=== PATIENT | female | born 1990 | race Caucasian/White ===

== ENCOUNTER → 2018-07-07 11:41 | Outpatient (CLI) | payer OTHER, MEDICAID, SELFPAY ==
[2018-07-07 12:09] LABS: Add Manual Diff / Slide Review NO; Basophils Percent Auto 0.5 % (0-2); Eosinophils Percent Auto 0.9 % (2-4); Hematocrit 35.7 % (36-46); Hemoglobin 11.9 g/dL (12.0-16.0); Mean Corpuscular HGB Conc 33.2 % (30-36); Mean Corpuscular Hemoglobin 26.3 PG (26-34); Mean Corpuscular Volume 79.2 fL (80-100); Monocytes Percent Auto 5.2 % (3-14); Neutrophils Absolute Auto 9000 /uL (3000-5900); Neutrophils Percent Auto 74.4 % (50-75); Platelet Count 342 X10^3/uL (150-400); Red Blood Cell Count 4.51 X10^6/uL (4.0-5.2); Red Cell Distribution Width 14.3 % (11.6-14.8)
[2018-07-07 12:35] LABS: Appearance Urine UA SL CLOUDY; Bilirubin Urine UA NEGATIVE (NEGATIVE); Color Urine UA YELLOW; Glucose Urine UA NEGATIVE (Normal); Ketones Urine UA NEGATIVE (NEGATIVE); Leukocyte Esterase Urine UA NEGATIVE (NEGATIVE); Nitrite Urine UA POSITIVE (Negative); Occult Blood Urine UA NEGATIVE (Negative); Protein Urine UA NEGATIVE (Negative); Urobilinogen Urine UA 0.2 E.U./dL (0.2); pH Urine UA 6.5 (4.5-8.0)
[2018-07-07 12:57] LABS: Amorphous Sediment Urine 1+; Bacteria Urine Many (>30); Mucus Urine 1+ (Negative); RBC Urine None Seen (0-5/HPF); Squamous Epithelial Cell Urine 1-5 /HPF; WBC Urine 1-5/HPF (0-5/HPF)
[2018-07-07 15:40] LABS: Hepatitis B Surface Antigen NEGATIVE s/c (NEGATIVE); Rubella Antibody IgG 21.5 IU/mL (>15)
[2018-07-07 15:54] LABS: HIV 1 and 2 Antibody NEGATIVE (NEGATIVE); Hep C Virus Ab w/Reflex Quant NEGATIVE s/c (NEGATIVE)
[2018-07-09 08:52] LABS: Varicella IgG Antibody < 135.00 Index (< 135.00)
[2018-07-09 13:23] LABS: RPR Screen Nonreactive (Nonreactive)
[2018-07-10 08:53] LABS: HSV 2 IGG AB < 0.90 index (< 0.90); HSV1IGG < 0.90 index (< 0.90)
== END ==
PROVIDERS: PCP Obstetrics & Gynecology; Visit Provider Obstetrics & Gynecology
DX: Z34.81 Encounter for supervision of other normal pregnancy, first trimester (principal); Z3A.01 Less than 8 weeks gestation of pregnancy
CPT/HCPCS: 36415; 80055; 81003; 81015; 86695; 86696; 86703; 86787; 86803; 86850; 86900; 86901; 87077; 87086; 87186

== ENCOUNTER → 2018-09-25 13:38 | Outpatient (CLI) | payer OTHER, MEDICAID, SELFPAY ==
--- NOTE | 2018-09-25 13:44 | DI.US.S_ITS ---
PROCEDURE: US OB >= 14 WEEKS FETUS INDICATIONS: ANATOMY OUTSIDE/PRIOR DATING DATA: Last menstrual period (LMP): 05/03/18. LMP-based estimated date of delivery (FRANCISCO JAVIER): 02/07/19. First dating scan (date and location): 09/25/18. Estimated date of delivery (FRANCISCO JAVIER) from first dating scan: 02/05/19. TECHNIQUE: Real-time scanning was performed of the fetus, with image documentation and biometric measurements. Endovaginal scanning: No COMPARISON: [facility], , OB <= 14 WEEKS FETUS, 07/21/2018, 16:08. FINDINGS: General: A single living intrauterine gestation is present. Presentation: Transverse. Placenta: Placental position is fundal, without previa. Amniotic fluid index: 14.4 cm, normal range is 5-24 cm. heart rate: 155 beats per minute. Maternal cervical canal: 3.9 cm long. Normal lower limit is 2.5 cm. biometrics: Biparietal diameter: 20 weeks 6 days Head circumference: 21 weeks 2 days Abdominal circumference: 20 weeks 6 days Femur length: 21 weeks 4 days Estimated gestational age from initial scan: 21 weeks 0 days Composite gestational age from present scan: 1 weeks 1 day Estimated weight and percentile: 403 g; 53rd percentile Measurement variability for biometric dating: +/- 7 days from 14 weeks to 15 weeks 6 days gestation, +/- 10 days from 16 weeks to 21 weeks 6 days gestation, +/- 2 weeks from 22 weeks to 27 weeks 6 days gestation, +/- 3 weeks for 28 weeks gestation or later. weight reference: 4500 g or EFW >90/95% is considered macrosomia or large for gestational age. EFW <10% is small for gestational age. EFW 5% or less is considered intra-uterine growth restriction. Anatomic survey: Neuro: Ventricles are non-dilated at less than 10 mm. Cisterna magna is normal at 3-11 mm. Cerebellum is normal in size and morphology. Nuchal skin fold: Normal at less than 6 mm between 14-21 weeks gestational age. Face: Not well-seen. Spine: No evidence for spina bifida. Heart: 4-chambered heart is present, with normal ventricular outflow tracts. Diaphragm: Diaphragm is intact. Stomach: Left-sided stomach is present. Kidneys: No hydronephrosis. Normal is less than 5 mm in 2nd trimester, less than 7 mm in 3rd trimester. Cord: 3-vessel cord has orthotopic insertion. Bladder: Normal in size. Extremities: All 4 extremities identified. IMPRESSION: 1. Single living IUP redemonstrated and interval growth is normal. 2. face not well visualized otherwise normal anatomic survey. Followup recommended. Dictated by: [employer] [facility] Interpreted: Jean Marie Brito MD on 09/25/2018 at 15:21 Approved by: Jean Marie Brito M.D. on 09/25/2018 at 17:18
== END ==
PROVIDERS: Visit Provider Obstetrics & Gynecology
DX: Z34.82 Encounter for supervision of other normal pregnancy, second trimester (principal); Z3A.21 21 weeks gestation of pregnancy
CPT/HCPCS: 76811

== ENCOUNTER → 2018-10-21 12:54 | Outpatient (CLI) | payer OTHER, MEDICAID, SELFPAY ==
[2018-10-21 14:38] LABS: Hematocrit 33.6 % (36-46); Hemoglobin 10.9 g/dL (12.0-16.0)
[2018-10-21 14:55] LABS: GTT (PREG) 1 Hour PP 50gm Dose 133 mg/dL (76-139)
== END ==
PROVIDERS: Visit Provider Obstetrics & Gynecology
DX: Z34.82 Encounter for supervision of other normal pregnancy, second trimester (principal); Z34.02 Encounter for supervision of normal first pregnancy, second trimester; Z3A.15 15 weeks gestation of pregnancy
CPT/HCPCS: 36415; 82105; 82677; 82950; 84702; 85014; 85018; 86336

== ENCOUNTER 2018-12-16 12:13 | Outpatient (CLI) | payer OTHER, MEDICAID, SELFPAY | END 2018-12-16 13:07 | disposition home or self-care (01) | LOC: LABOR 12:55 → OB 12-17 10:47 | PROVIDERS: PCP Family Medicine; Visit Provider Obstetrics & Gynecology | DX: O76 Abnormality in fetal heart rate and rhythm complicating labor and delivery (principal); Z3A.32 32 weeks gestation of pregnancy | CPT/HCPCS: 59025; G0378; G0379 ==

== ENCOUNTER 2019-01-01 15:57 | Observation (INO) | payer OTHER, MEDICAID, SELFPAY | END 2019-01-01 19:30 | disposition home or self-care (01) | PROVIDERS: Admitting Provider Obstetrics & Gynecology; PCP Family Medicine; Visit Provider Obstetrics & Gynecology | DX: Z34.83 Encounter for supervision of other normal pregnancy, third trimester (principal); Z3A.34 34 weeks gestation of pregnancy | CPT/HCPCS: 59025; 59050; G0378; G0379 ==

== ENCOUNTER 2019-01-01 16:59 | Observation (INO) | payer OTHER, MEDICAID, SELFPAY ==
[2019-01-01] MEDS: NIFEdipine 10 MG CAPSULE PO ×2 (18:40→19:02)
== END 2019-01-01 19:30 | disposition home or self-care (01) ==
LOC: AC 17:08 → LABOR 17:37
PROVIDERS: Admitting Provider Obstetrics & Gynecology; PCP Family Medicine; Visit Provider Obstetrics & Gynecology
DX: Z34.83 Encounter for supervision of other normal pregnancy, third trimester (principal); Z3A.34 34 weeks gestation of pregnancy
CPT/HCPCS: 59025; 59050; G0378; G0379

== ENCOUNTER → 2019-01-18 14:57 | Outpatient (CLI) | payer OTHER, MEDICAID, SELFPAY ==
[2019-01-19 21:09] LABS: Strep Grp B PCR POS for Grp B Strep
== END ==
PROVIDERS: PCP Family Medicine; Visit Provider Obstetrics & Gynecology
DX: Z34.83 Encounter for supervision of other normal pregnancy, third trimester (principal); Z3A.37 37 weeks gestation of pregnancy
CPT/HCPCS: 87653

== ENCOUNTER 2019-02-01 05:45 | Inpatient (IN) | payer OTHER, MEDICAID, SELFPAY ==
[2019-02-01 06:36] VITALS: BP 129/78
[2019-02-01] MEDS: LACTATED RINGERS 1,000 ML 1000 ML IV ×2 (06:36→07:36)
--- NOTE | 2019-02-01 07:41 | PM.PREOP ---
Pre-operative Note Interval Note History & Physical reviewed/Exam performed by Physician: Yes Changes to H&P: No
[2019-02-01] MEDS: CEFAZOLIN 2 GM/100 ML FROZ.PIGGY IV (07:50)
[2019-02-01 07:54] LABS: Basophils Absolute Auto 100 /uL (0-100); Hemoglobin 10.4 g/dL (12.0-16.0); Lymphocytes Absolute Auto 2800 /uL (1100-4500)
[2019-02-01 07:59] LABS: Basophils Percent Auto 0.6 % (0-2); Eosinophils Absolute Auto 100 /uL (0-450); Eosinophils Percent Auto 0.7 % (2-4); Hematocrit 32.7 % (36-46); Lymphocytes Percent Auto 17.4 % (25-40); Mean Corpuscular HGB Conc 31.8 % (30-36); Mean Corpuscular Hemoglobin 24.6 PG (26-34); Mean Corpuscular Volume 77.3 fL (80-100); Monocytes Absolute Auto 1000 /uL (0-900); Monocytes Percent Auto 6.3 % (3-14); Neutrophils Absolute Auto 12000 /uL (1500-7000); Red Blood Cell Count 4.23 X10^6/uL (4.0-5.2); Red Cell Distribution Width 15.8 % (11.6-14.8)
[2019-02-01 08:01] LABS: Add Manual Diff / Slide Review SLIDE REVIEW
[2019-02-01 08:19] LABS: RBC Morphology Normal Morphology
--- NOTE | 2019-02-01 08:36 | SUR.OPER ---
Supine on Padded OR bed, head on pillow, safety belt at thigh, arms secured on padded arm boards at <90 degrees abduction. Bump under right buttock. Legs uncrossed with pillow under knees, gel pad to heels, tape over blanket to lower legs.
--- NOTE | 2019-02-01 08:39 | SUR.OPER ---
Viable female delivered at 0825. Cord blood and placenta sent with L&D nurse.
[2019-02-01 08:52] LABS: Platelet Count 270 X10^3/uL (150-400)
[2019-02-01 09:09] VITALS: BP 114/63; PULSE 73; RESP 12; TEMP 36.2; O2SAT 98
[2019-02-01 09:13] VITALS: BP 109/64; PULSE 68; RESP 11; O2SAT 99
--- NOTE | 2019-02-01 09:14 | SUR.PHASEI ---
IV IN RIGHT HAND SECURED, INTACT AND INFUSING WITHOUT DIFFICULTLY.
[2019-02-01 09:18] VITALS: BP 111/64; PULSE 79; RESP 16; TEMP 36.3; O2SAT 97
--- NOTE | 2019-02-01 09:19 | SUR.PHASEI ---
PT IN STABLE CONDITION, VSS. PT LAYING IN BED WITH EYES OPEN AND EATING ICE CHIPS. PT DENIES ANY PAIN/DISCOMFORT OR NAUSEA. DRSG ON ABDOMEN OBSERVED TO BE C/D/I. LUIS-PAD OBSERVED TO HAVE SMALL AMOUNT OF RED BLOOD. CATHETER SECURE AND DRAINING CLEAR YFN COLORED URINE. REPORT CALLED TO ALISSA MONGE IN CENTER.
[2019-02-01 09:23] VITALS: BP 110/63; PULSE 65; RESP 14; O2SAT 98
[2019-02-01 09:27] VITALS: BP 113/61; PULSE 67; RESP 13; TEMP 36.3; O2SAT 96
--- NOTE | 2019-02-01 09:37 | SUR.PHASEI ---
PT TRANSFERRED TO CENTER IN STABLE CONDITION. PT ALERT AND TALKING TO RN DURING TRANSPORT. PT FAMILY IN ROOM UPON ARRIVAL TO ROOM. BEDSIDE REPORT GIVEN ALISSA MONGE UPON ARRIVAL. TRANSFERRED CARE OF PT TO ALISSA MONGE.
[2019-02-01] MEDS: LACTATED RINGERS 1,000 ML 100 ML IV (09:45)
[2019-02-01] MEDS: NALBUPHINE 20 MG/ML AMPUL 5 MG IV (12:02)
[2019-02-01] MEDS: diphenhydrAMINE 50 MG/ML VIAL 25 MG IV (12:55)
[2019-02-01] MEDS: KETOROLAC 30 MG/ML VIAL IV ×2 (15:19→21:42)
--- NOTE | 2019-02-01 17:54 | PM.GYNOP.1 ---
Operative Date/Time/Diagnoses Date of procedure: 02/01/19 Time of procedure: 09:10 Pre-op diagnosis: Thirty-nine weeks gestation Previous section Post-op diagnosis: same Procedure: Procedures Operation Date: 02/01/19 07:45 Actual Procedures Side Surgeon p Section-Repeat Korina Winston MD Indications: Thirty-nine weeks gestation Previous section Surgeon: Korina Winston Railroad Switchman: Radha Swann Anesthesia Type: Spinal (With Duramorph) Operative Notes Findings: Live female infant Cord wrapped around the legs and feet Normal uterus, tubes, and ovaries Closure Type: primary Specimen(s): other (Placenta, cord blood) Applied: catheter Estimated blood loss (mL): 500 Blood products transfused: none Procedure in detail: The patient was taken to the operating room where she was placed in the seated position. Spinal anesthesia with Duramorph was administered. The patient was then placed in the dorsal supine position with a leftward tilt. She was prepped and draped in the usual sterile fashion. A timeout was performed. After spinal analgesia was found to be adequate, a Pfannenstiel skin incision was made through the previous incision and carried through to the underlying layer fascia. The fascia was nicked in the midline, and the incision extended bilaterally with the Rice scissors. The superior aspect of the fascial incision was grasped with a Man clamps, elevated, and the underlying rectus muscles dissected off sharply and bluntly. Attention was then turned to the inferior aspect of this incision which in a similar fashion was grasped with a Apollo clamps, elevated, and the underlying rectus muscles dissected off sharply and bluntly. The rectus muscles were in the midline. The peritoneum was identified, grasped between 2 hemostats, and entered sharply with the Metzenbaum scissors. This incision was extended superiorly and inferiorly with good visualization of the bladder. The bladder blade was inserted. The vesicouterine peritoneum was identified, grasped with the pickup, and entered sharply with the Metzenbaum scissors. This incision was extended bilaterally, and the bladder flap was created digitally. The bladder blade was reinserted. The lower uterine segment was incised in a transverse fashion with the scalpel. Upon entering the amniotic sac there was moderate amount of clear amniotic fluid. The 's head was delivered with vacuum assistance. The nose and mouth were suctioned with bulb suction. The remainder of the body delivered without difficulty. The cord was double clamped and cut. The was handed off to waiting RN and RT. The placenta was delivered manually. The uterus was cleared of all clots and debris. The uterine incision was repaired with #1 chromic in a running interlocking fashion, and a second layer the same suture was used for an imbricating layer. Hemostasis was achieved. The tubes and ovaries were examined and were found to be normal. The gutters were cleared of all clots and debris. The bladder flap was reapproximated using 2-0 Vicryl in a running fashion. The parietal peritoneum was closed using 2-0 Vicryl in a running fashion. The fascia was reapproximated using 0 Vicryl in a running fashion. The subcutaneous layer was copiously irrigated with warm normal saline. 5 simple interrupted sutures of 3-0 Vicryl were placed to reapproximate the subcutaneous layer. The skin was closed with 4-0 undyed Vicryl in a subcuticular fashion. Steri-Strips were placed. An Aquacell dressing was placed. The uterus was expressed of a small amount of old blood. Sponge, lap, and instrument counts were correct x-2. The patient tolerated the procedure well, and was taken to PACU in stable condition. Complications: none Post-operative Condition: stable Disposition: PACU Plan for aftercare: To center after recovery
[2019-02-02] MEDS: KETOROLAC 30 MG/ML VIAL IV (04:15)
[2019-02-02 07:06] LABS: Hematocrit 29.5 % (36-46); Hemoglobin 9.6 g/dL (12.0-16.0)
[2019-02-02] MEDS: PRENATAL VIT,CALC/IRON/FOLIC 1 TABLET 1 TAB PO (11:14)
[2019-02-02] MEDS: OXYCODONE/ACETAMINOPHEN 5/325 TABLET 1 TAB PO ×2 (12:03→16:21)
[2019-02-02] MEDS: IBUPROFEN 600 MG TABLET PO (16:21)
--- NOTE | 2019-02-02 18:19 | P.PNOB_ITS ---
Subjective - OB Patient comments: no complaints, pain well controlled and tolerating diet [place] baby status: doing well and bottle feeding well feeding status: exclusively bottle feeding Date Patient Seen: 02/02/19 Time Patient Seen: 18:17 Interval history: Patient is a 28-year-old 2 para 2 postop day # 1 status post repeat low-transverse section Exam Vital Signs (past 8 hours): Oxygen Delivery Method Room Air Narrative Exam Narrative: Generally: Patient walking around the room, no acute distress Lungs: Clear to auscultation bilaterally Cardiovascular: Regular rate and rhythm Fundus: Firm at U -2 Incision: Clean dry and intact with Aquacel dressing Extremities: Negative Homans, no edema Objective Labs Result Diagrams: 02/02/19 Unknown Labs: Laboratory Results - last 24 hr 02/02/19 Unknown Hgb 9.6 L Hct 29.5 L Assessment & Plan Plan day: 1 plan OB: routine postop care Comments: Anticipate discharge 02/03/2019 Time Spent With Patient Total time spent is greater than 50% in coordination of care (as documented) at patient's floor/unit and/or counseling patient: 15-24 minutes
[2019-02-02] MEDS: OXYCODONE/ACETAMINOPHEN 5/325 TABLET 2 TAB PO (20:11)
[2019-02-03] MEDS: IBUPROFEN 600 MG TABLET PO ×2 (00:32→08:17)
[2019-02-03] MEDS: OXYCODONE/ACETAMINOPHEN 5/325 TABLET 2 TAB PO ×2 (00:32→08:17)
[2019-02-03] MEDS: DOCUSATE 250 MG CAPSULE PO (08:16)
[2019-02-03] MEDS: PRENATAL VIT,CALC/IRON/FOLIC 1 TABLET 1 TAB PO (08:16)
[2019-02-03 11:52] VITALS: BP 130/75; PULSE 82; RESP 16; TEMP 36.7
--- NOTE | 2019-02-05 05:36 | PM.OBDS.1 ---
Discharge Providers Date of admission: 02/01/19 05:45 Discharge Date: 02/03/19 Primary care physician: Colleen Tran DO Consults: 02/01/19 09:55 Consult to Product Transfer Pumper Routine Comment: Discharge provider: Korina Winston MD Summary Date Patient Seen: 02/03/19 Time Patient Seen: 07:30 Procedures: Repeat low-transverse section Spinal anesthesia Hospital Course: Patient is a 28-year-old 2 para 2 who presented on 02/01/2019 for a scheduled repeat section. She underwent a repeat section under spinal anesthesia without complication. Her postoperative course was unremarkable and on postop day # 2 she was tolerating a diet, passing flatus, breast-feeding going well, ambulating, voiding without the catheter, and pain well controlled. She was discharged home on 02/03/2019 to follow up at 1 week for Aquacel dressing removal. Peripartum Data Delivery Method: Section Laceration description: None Episiotomy description: None Procedures: Repeat low-transverse section Spinal anesthesia complications: none Status at Discharge Cognitive/behavioral status at discharge: oriented Functional status at discharge: independent ambulation Overall status at discharge: patient is progressing back to baseline Time Spent with Patient Total time spent providing and/or coordinating discharge services: Less than 30 minutes Objective Labs Result Diagrams: 02/02/19 Unknown Exam Vital Signs (past 8 hours): Oxygen Delivery Method Room Air Narrative Exam Narrative: Generally: Patient is sitting up in bed, holding , no acute distress Lungs: Clear to auscultation bilaterally Cardiovascular: Regular rate and rhythm Fundus: U -2 Incision: Clean dry and intact with Aquacel dressing Extremities: Trace edema, negative Homans Discharge Plan Discharge Plan Patient Disposition: Home Discharge comment: Call with fever, chills, redness or drainage around incision or bleeding vaginally more than a pad in an hour Discharge Med Rec/Prescriptions Prescriptions: New oxycodone-acetaminophen [Percocet] 5-325 mg tablet 1 tab PO Q4-6H PRN (Reason: pain) Qty: 30 RF: 0 Continued Vitamins (PRENAVITE) 1 tab PO DAILY Qty: 0 RF: 0 Follow up/Referrals: Korina Winston MD [Physician] - 1 Week (Aquacel removal Please follow up at Dr. Tovar office on 02/08/2019 at 1030) Provider Discharge Instructions Diet: Regular Activity: No heavy lifting No intercourse Skin/Wound/Dressing Care Report to your healthcare provider any signs of infection, such as:: chills, fever, increased pain, unusual drainage and unusual redness Dressing: Leave in place Visit Report/Discharge Packet Instructions: DI for Stand Alone Forms: Discharge: Care Discharge Data Primary Care Provider: Colleen Tran Attending Provider: Korina Winston Admit Date/Time: 02/01/19 05:45 Discharges patient from system. Discharge Date/Time: 02/03/19 14:00
== END 2019-02-03 14:00 | disposition home or self-care (01) | DRG 540 ==
PROVIDERS: Admitting Provider Obstetrics & Gynecology; PCP Family Medicine; Visit Provider Obstetrics & Gynecology
PROC: 10D00Z1 Extraction of Products of Conception, Low, Open Approach (ICD-10-PCS; CPT 59514; principal; 2019-02-01 07:45)
DX: O34.219 Maternal care for unspecified type scar from previous cesarean delivery (principal); O99.824 Streptococcus B carrier state complicating childbirth; Z3A.39 39 weeks gestation of pregnancy; Z37.0 Single live birth
CPT/HCPCS: 36415; 59050; 59514; 85014; 85018; 85025; 86850; 86900; 86901; J0171; J0690; J1200; J1885; J2274; J2300; J2405; J2590

== ENCOUNTER 2023-05-15 10:53 | Day surgery (SDC) | payer OTHER, MEDICAID, SELFPAY ==
[2023-05-14 11:05] VITALS: BMI 36.3
[2023-05-15] VITALS (10 sets, daily range): BP systolic 107–140; BP diastolic 64–87; PULSE 69–87; RESP 9–19; TEMP 35.9–36.3; O2SAT 95–99; BMI 36.3
--- NOTE | 2023-05-15 | PATH_ITS ---
[facility] Accession Number: [id number] No. of containers..01 Tissue . 01 Material submitted: . uvula - UVULA LESION . 01 Diagnosis: Uvula, Biopsy: Squamous papilloma. Negative for dysplasia and malignancy. [facility] 05/23/2023 1754 Local . 01 Electronically signed: . Valeria Chavez MD, Pathologist NPI- [id number] . 01 Gross description: . The specimen is received in formalin labeled with the patient's name, , and uvula lesion, and consists of a pale weaver, roughened soft tissue fragment measuring 0.7 x 0.3 x 0.3 cm. The presumed margin is inked blue. The specimen is submitted intact in cassette A1. ([id number]) /[facility] 05/21/2023 0320 Local . 01 Pathologist provided ICD-10: K13.70 . 01 CPT . 903743 Specimen Comment: A courtesy copy of this report has been sent to [phone] Performed at: 01 [facility] [address] [place] [address], [place], [place] [id number] MD Ronny Viveros MD Phone: [phone]
--- NOTE | 2023-05-15 12:19 | PM.PREOP ---
Pre-operative Note Interval Note History & Physical reviewed/Exam performed by Physician: Yes Changes to H&P: No
--- NOTE | 2023-05-15 12:37 | P.OP_ITS ---
Operative Date/Time/Diagnoses Date of procedure: 05/15/23 Time of procedure: 13:30 Pre-op diagnosis: Upper airway obstruction secondary to tonsillar, possible adenoid hypertrophy, chronic tonsillitis, recurrent strep tonsillitis, mass of uvula Post-op diagnosis: same (with adenoid hypertrophy, uvula mass) Procedure & Clinicians Procedure: 1. Adenotonsillectomy 2. Excision of 5mm mass of uvula, presumed papilloma Same procedure as scheduled: Yes Indications: 32 Year old with the above diagnoses incompletely managed with medical therapy presents for the above procedure. Following discussion of the material risks benefits complications and alternatives, the parents elected to proceed. Surgeon: Cristian Hercules Click Yes if Unassisted: Yes Anesthesia Type: General and Local Operative Notes Findings: Intact palate, single uvula with 5mm presumed papilloma excised from RIGHT base, 3 to 4+ tonsils, 2+ adenoids Estimated Blood Loss (mL): 15 Procedure in detail: Following identification and confirmation of consent the patient was brought to the operating room suite and placed in the supine position. General endotrache al anesthesia was administered. A head wrap, shoulder roll, and mouth gag were placed and a red rubber catheter was inserted through the nostril and out the mouth to retract the soft palate. Partially obstructive adenoid tissue was ablated with suction electrocautery on a setting of 40, without injury to the eustachian tube orifices or choana. The left tonsil was retracted medially and suction electrocautery on a setting of 30 was used to dissect the tonsil in a subcapsular plane, followed by hemostasis with the same. This process was repeated on the right side with identical findings. The tonsillar fossae were superficially infiltrated bilaterally with 2% lidocaine 1 100,000 epinephrine. A probable papilloma of the RIGHT base of uvula was identified and resected with scissors, sent to pathology. Mouth gag and rubber catheter were removed and the patient was extubated in the operating room and taken to the recovery room in stable condition without known complication. Complications: none Post-operative Condition: stable Disposition: same day surgery Plan for aftercare: Push fluids, alternate Tylenol and Advil every 3 hours for baseline pain control, oxycodone for breakthrough pain. Soft diet 2 full weeks, no heavy lifting or straining 2 weeks.
--- NOTE | 2023-05-15 13:01 | SUR.OPER ---
Supine on padded OR bed, head on pillow, arms secured on padded arm boards at <90 degrees abduction, legs uncrossed, safety belt at thigh, tape over blanket over lower legs.
[2023-05-15] MEDS: LIDOCAINE 2% W/EPI INJ 20 ML INJ (13:05)
[2023-05-15] MEDS: LACTATED RINGERS 1,000 ML 42 ML IV ×2 (13:15→14:15)
[2023-05-15] MEDS: HYDROMORPHONE 1 MG INJ IV ×2 (13:44→13:53)
[2023-05-15] MEDS: fentaNYL 100 MCG/2 ML INJ IV (13:50)
[2023-05-15] MEDS: ONDANSETRON 4 MG/2 ML INJ IV (13:51)
[2023-05-15] MEDS: OXYCODONE IR 5 MG TABLET PO (13:52)
== END 2023-05-15 14:47 | disposition home or self-care (01) ==
PROVIDERS: PCP Family Medicine; Referring Provider Otolaryngology; Visit Provider Otolaryngology
PROC: (CPT 42821; principal; 2023-05-15 12:30)
DX: J35.3 Hypertrophy of tonsils with hypertrophy of adenoids (principal); D10.39 Benign neoplasm of other parts of mouth
CPT/HCPCS: 42821; 42100; J1100; J1170; J2250; J2405; J2704; J3010